=== PATIENT | female | born 1960 | race American Indian/Alaskan Native ===

== ENCOUNTER 2016-09-29 17:33 | Emergency (ER) | payer BC ==
[2016-09-29 17:43] VITALS: TEMP 98.5
[2016-09-29] MEDS ORDERED: Sodium Chloride 0.9% 500 ML IV ONE (20:00)
[2016-09-29] MEDS ORDERED: Sodium Chloride 0.9% 1,000 ML ONE (20:21)
[2016-09-29 20:22] LABS: BASO # 0.1 K/uL (0.0-0.2); BASO % 1.4 % (0.0-2.0); EOS # 0.1 K/uL (0.0-0.7); HEMATOCRIT 35.9 % (34.0-47.0); LYMPH # 2.8 K/uL (1.0-4.3); LYMPH % 36.3 % (20.0-40.0); MEAN CORPUSCULAR HEMOGLOBIN 31.3 pg (27.0-31.0); MEAN CORPUSCULAR HGB CONC 33.6 g/dL (33.0-37.0); MEAN PLATELET VOLUME 9.5 fL (7.2-11.7); MONO # 0.6 K/uL (0.0-0.8); MONO % 7.1 % (0.0-10.0); RED CELL DISTRIBUTION WIDTH 15.4 % (11.5-14.5)
[2016-09-29 20:24] LABS: WHITE BLOOD COUNT 7.8 K/uL (4.8-10.8)
[2016-09-29 20:30] LABS: RBC URINE 26 /hpf (0-3); URINE BACTERIA RARE (<OCC); URINE BILIRUBIN NEGATIVE (NEGATIVE); URINE COLOR Yellow (YELLOW); URINE GLUCOSE (UA) NORMAL (Normal); URINE KETONE NEGATIVE (NEGATIVE); URINE LEUKOCYTE ESTERASE NEG Leu/uL (Negative); URINE PROTEIN NEGATIVE (NEGATIVE); URINE UROBILINOGEN NORMAL mg/dL (0.2-1.0); WBC URINE 2 /hpf (0-5)
[2016-09-29 20:31] LABS: URINE BLOOD 2+ (NEGATIVE)
[2016-09-29 20:41] LABS: CHLORIDE 101 mmol/L (98-107); POTASSIUM 4.1 mmol/L (3.6-5.2); SODIUM 139 mmol/L (132-148)
[2016-09-29 20:43] LABS: ALB/GLOB RATIO 1.4 (1.0-2.1); ALKALINE PHOSPHATASE 69 U/L (38-126); AST/SGOT 30 U/L (14-36); BILIRUBIN,TOTAL 0.6 mg/dL (0.2-1.3); CARBON DIOXIDE 27 mmol/L (22-30); GFR AFRICAN-AMERICAN > 60; TOTAL PROTEIN 6.9 g/dL (6.3-8.3)
[2016-09-29 20:44] LABS: ALT/SGPT 30 U/L (9-52); BLOOD UREA NITROGEN 16 mg/dL (7-17); CALCIUM 9.1 mg/dl (8.6-10.4); GLUCOSE,RANDOM 86 mg/dL (65-105)
--- NOTE | 2016-09-29 21:32 | C.PDOC ---
History Of Present Illness 56 year old female with a complaint of constant lower back pain radiating to her legs since yesterday night. Patient states that the pain began radiating to the suprapubic area this afternoon and states the pain worsens with walking. Reports not taking any analgesics for her pain. Denies weakness, numbness, recent trauma/injury, nausea, vomiting, diarrhea, incontinence, or urinary symptoms. Patient only has a SHx of a hysterectomy. PMD is Dr. Weber Time Seen by Provider: 09/29/16 19:17 Chief Complaint (Nursing): Lower Extremity Problem/Injury History Per: Patient History/Exam Limitations: no limitations Onset/Duration Of Symptoms: Days Current Symptoms Are (Timing): Still Present Location Of Pain/Discomfort: Suprapubic Radiation Of Pain To:: None Quality Of Discomfort: Unable To Describe Associated Symptoms: denies: Fever, Chills, Nausea, Vomiting, Urinary Symptoms Exacerbating Factors: Walking Alleviating Factors: None Recent travel outside of the [place]: No Abnormal Vaginal Bleeding: No Past Medical History Reviewed: Historical Data, Nursing Documentation, Vital Signs Vital Signs: Last Vital Signs Temp 98.5 F 09/29/16 17:38 Pulse 70 09/29/16 21:44 Resp 14 09/29/16 21:44 BP 130/80 09/29/16 21:44 Pulse Ox 100 09/29/16 22:28 - Medical History PMH: HTN, Pneumonia Other Surgeries: Hysterectomy Family History: States: Unknown Family Hx - Social History Hx Tobacco Use: Yes Hx Alcohol Use: Yes Hx Substance Use: No - Immunization History Hx Tetanus Toxoid Vaccination: No Hx Influenza Vaccination: No Hx Pneumococcal Vaccination: No Review Of Systems Except As Marked, All Systems Reviewed And Found Negative. Constitutional: Negative for: Fever, Chills Gastrointestinal: Positive for: Abdominal Pain. Negative for: Nausea, Vomiting Genitourinary: Negative for: Dysuria, Incontinence, Hematuria Musculoskeletal: Positive for: Back Pain, Leg Pain Neurological: Negative for: Weakness, Numbness Physical Exam - Physical Exam Appears: Well, Non-toxic, Other (mild painful distress, but laying comfortably in bed) Skin: Normal Color, Warm, Dry Head: Atraumatic, Normacephalic Oral Mucosa: Moist Neck: Normal, Normal ROM, Supple Chest: Symmetrical, No Tenderness Cardiovascular: Rhythm Regular, No Murmur Respiratory: Normal Breath Sounds, No Rales, No Rhonchi, No Wheezing Gastrointestinal/Abdominal: Soft, Tenderness (Mild suprapubic), No Mass, No Distention, No Guarding, No Rebound Back: Normal Inspection, No CVA Tenderness, No Vertebral Tenderness, Paraspinal Tenderness (Lumbar), Straight Leg Raising (normal) Extremity: Normal ROM, No Tenderness, No Swelling Pulses: Left Dorsalis Pedis: Normal, Right Dorsalis Pedis: Normal Neurological/Psych: Oriented x3, Normal Speech, Normal Cognition, Normal Cranial Nerves, Normal Motor, Normal Sensation ED Course And Treatment - Laboratory Results Result Diagrams: 09/29/16 20:19 09/29/16 20:19 O2 Sat by Pulse Oximetry: 100 (Room air) Pulse Ox Interpretation: Normal Medical Decision Making Medical Decision Makin yo F c/o 2 day h/o low back pain radiating to the legs and then started to the suprapubic area since today. Plan: - CBC - CMP - IV - Toradol IV - UA - Urine cx Lab results reviewed : lipase 351, UA +blood. On re-evaluation, pt reports feeling much improved. Reports significant improvement of her low back pain and abdominal pain. On exam, patient is laying in bed comfortably in no acute distress. Abdomen is soft with no tenderness to deep palpation, no guarding, and no rebound, no CVA tenderness. Back : (-) midline tenderness, (+) mild paralumbar tenderness. Repeat neuro shows no focal findings. Pt able to get up and out of the bed on her own without assistance, is ambulating with a normal gait. Diagnostic results d/w the pt in great detail. Pt notified of likely diagnosis of sciatica. Rxs provided to the pt and instructed to take as prescribed. Otherwise, advised to follow up with her pmd in 2 days for re-evaluation. Return to the ER at any time for any new or worsening symptoms. Disposition Counseled Patient/Family Regarding: Studies Performed, Diagnosis, Need For Followup, Rx Given - Disposition Disposition: HOME/ ROUTINE Disposition Time: 21:15 Condition: STABLE Additional Instructions: Take medications as prescribed. Follow up with your pmd or the clinic in 2 days for re-evaluation. Return to the ER at any time for any new or worsening symptoms. Prescriptions: Cyclobenzaprine [Cyclobenzaprine HCl] 10 mg PO TID PRN #15 tab PRN Reason: Muscle Spasm Meloxicam [Mobic] 15 mg PO DAILY PRN #30 tab PRN Reason: Pain, Moderate (4-7) Instructions: Sciatica (ED) Forms: [facility] (Amharic), Work Excuse Print Language: MOHAWK - Clinical Impression Clinical Impression: Sciatica - PA / RESTAURANT HOSPITALITY MANAGER / Resident Statement MD/DO has reviewed & agrees with the documentation as recorded. - Scribe Statement The provider has reviewed the documentation as recorded by the Scribe Vernon Henning All medical record entries made by the Kadiibrafi were at my direction and personally dictated by me. I have reviewed the chart and agree that the record accurately reflects my personal performance of the history, physical exam, medical decision making, and the department course for this patient. I have also personally directed, reviewed, and agree with the discharge instructions and disposition.
[2016-09-29 21:45] VITALS: BP 130/80; PULSE 70; RESP 14
[2016-09-29 22:24] VITALS: O2SAT 100
== END 2016-09-29 21:46 | disposition home or self-care (01) ==
LOC: C.ER 17:33
DX: M54.30 Sciatica, unspecified side (principal)
CPT/HCPCS: 80053; 81001; 83690; 85025; 87086; 96361; 96374; 99285; J1885; J7040

== ENCOUNTER 2016-12-04 16:52 | Emergency (ER) | payer BC ==
[2016-12-04 16:58] VITALS: RESP 18; O2SAT 100
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
--- NOTE | 2016-12-04 17:47 | CT ---
PROCEDURE: CT HEAD WITHOUT CONTRAST. HISTORY: injury COMPARISON: None available. TECHNIQUE: Axial computed tomography images were obtained through the head/brain without intravenous contrast. Radiation dose: Total exam DLP = 905.12 mGy-cm. This CT exam was performed using one or more of the following dose reduction techniques: Automated exposure control, adjustment of the mA and/or kV according to patient size, and/or use of iterative reconstruction technique. FINDINGS: HEMORRHAGE: No intracranial hemorrhage. BRAIN: No mass effect or edema. No atrophy or chronic microvascular ischemic changes. VENTRICLES: Unremarkable. No hydrocephalus. CALVARIUM: Unremarkable. PARANASAL SINUSES: Unremarkable as visualized. No significant inflammatory changes. MASTOID AIR CELLS: Unremarkable as visualized. No inflammatory changes. OTHER FINDINGS: None. IMPRESSION: Normal CT of the Head. No acute intracranial hemorrhage.
[2016-12-04 18:06] LABS: RBC URINE 4 /hpf (0-3); URINE BACTERIA RARE (<OCC); URINE BILIRUBIN NEGATIVE (NEGATIVE); URINE BLOOD NEGATIVE (NEGATIVE); URINE COLOR Yellow (YELLOW); URINE GLUCOSE (UA) NORMAL (Normal); URINE KETONE TRACE mg/dL (NEGATIVE); URINE LEUKOCYTE ESTERASE NEG Leu/uL (Negative); URINE PROTEIN NEGATIVE (NEGATIVE); WBC URINE 2 /hpf (0-5)
[2016-12-04 18:13] VITALS: BP 130/78; PULSE 76; TEMP 98
== END 2016-12-04 18:35 | disposition home or self-care (01) ==
LOC: C.ER 16:52
DX: S09.90XA Unspecified injury of head, initial encounter (principal); W20.8XXA Other cause of strike by thrown, projected or falling object, initial encounter; Y93.89 Activity, other specified; Y92.89 Other specified places as the place of occurrence of the external cause; Y99.0 Civilian activity done for income or pay; F07.81 Postconcussional syndrome; I10 Essential (primary) hypertension; Z91.19 Patient's noncompliance with other medical treatment and regimen; F17.210 Nicotine dependence, cigarettes, uncomplicated

== ENCOUNTER 2018-01-20 20:53 | Emergency (ER) | payer BC ==
[2018-01-20 21:08] VITALS: BP 116/76; PULSE 75; RESP 22; TEMP 98; O2SAT 97
[2018-01-20] MEDS ORDERED: Naproxen 550 mg Tab PO ONE (21:27)
[2018-01-20] MEDS ORDERED: Naproxen 550 mg Tab PO STA (21:29)
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
--- NOTE | 2018-01-21 11:03 | RAD ---
Date of service: 01/20/2018 PROCEDURE: Left Wrist Radiographs. HISTORY: pain and swelling left wrist R/o fx COMPARISON: None. FINDINGS: BONES: Comminuted intra-articular distal radial fracture, mildly displaced.. No ulnar styloid process fracture. Smooth corticated ossific density adjacent to the ulnar styloid process may represent a secondary ossification center. JOINTS: Radiocarpal and intercarpal articulations are grossly preserved. No dislocation. SOFT TISSUES: Normal. OTHER FINDINGS: None. IMPRESSION: Comminuted mildly displaced intra-articular distal radial fracture.
== END 2018-01-20 22:40 | disposition home or self-care (01) ==
LOC: C.ER 20:53
DX: S52.572A Other intraarticular fracture of lower end of left radius, initial encounter for closed fracture (principal); X58.XXXA Exposure to other specified factors, initial encounter; Y92.009 Unspecified place in unspecified non-institutional (private) residence as the place of occurrence of the external cause